=== PATIENT | female | born 1960 | race Caucasian/White ===

== ENCOUNTER 2024-04-13 18:39 | Emergency (ER) | payer BC, SELFPAY ==
[2024-04-13] VITALS (9 sets, daily range): BP systolic 137–196; BP diastolic 70–104; PULSE 73–88; RESP 14–21; TEMP 36.6; O2SAT 95–100
--- NOTE | ~2024-04-13 | CT_ITS ---
CTA brain carotid Ordering provider: Shelly Bill MD History: . stroke, L weakness . Comparison: None. Technique: CT angiogram head and neck was performed following timed intravenous injection of contrast . Thin slice axial images and reformatted coronal images were obtained. Three dimensional reformatted images of the brain were also obtained using a [employer] workstation. Radiation reduction technique ut ilized The dose-length product was 888.83 mGy-cm. 100 mL Omnipaque 350 was given IV. FINDINGS: HEAD: --ANTERIOR AND MIDDLE CEREBRAL ARTERIES AND BRANCHES: Normal caliber and contour. --INTERNAL CAROTID ARTERIES: Normal caliber and contour. --BASILAR ARTERY AND BRANCHES: Normal caliber and contour. No atheromatous disease. --POSTERIOR CEREBRAL ARTERIES: Normal caliber and contour --POSTERIOR COMMUNICATING ARTERIES: Not visualized which is probably related to congenital absence or small size. --ANEURYSM: None visualized. --BRAIN: Please refer to report of CT head performed the same day. --BONES AND SUPERFICIAL SOFT TISSUES: Please refer to report of CT head performed the same day. --PARANASAL SINUSES AND MASTOIDS: Please refer to report of CT head done the same day. NECK: --RIGHT CERVICAL CAROTID SYSTEM: Normal caliber and contour. Percent stenosis per NASCET criteria is 0%. No carotid dissection. Otherwise, no significant atheromatous disease or stenosis of the cervica l carotid system. --LEFT CERVICAL CAROTID SYSTEM: Normal caliber and contour. Percent stenosis per NASCET criteria is 0%. No carotid dissection. Otherwise, no significant atheromatous disease or stenosis of the cervical carotid system. --VERTEBRAL ARTERIES: Dominant left vertebral artery. Normal caliber and contour. --VISUALIZED AORTIC ARCH AND BRANCHING VESSELS: Normal caliber and contour. No significant atheromato us disease. --SOFT TISSUES: Large nodule in the left lobe of the thyroid. Ultrasound evaluation advised. --CERVICAL SPINE: Age appropriate degenerative changes. IMPRESSION: 1. Normal CTA head and neck. Percent stenosis per NASCET criteria is 0%. 2. Large left lobe of the thyroid nodule. Ultrasound evaluation advised. Reviewed, dictated and finalized at location A.
--- NOTE | ~2024-04-13 | XR_ITS ---
XR chest 1V portable Ordering provider: Peter Anglin MD History: 63 years Female with . left sided weakness . Comparison: None. FINDINGS: MEDIASTINUM: The cardiac silhouette is not enlarged. LUNGS: No infiltrates, effusions or pneumothorax. OTHER: No free air under the diaphragm. Degenerative spine. IMPRESSION: No acute cardiopulmonary pathology. Reviewed, dictated and finalized at location A.
--- NOTE | ~2024-04-13 | CT_ITS ---
CT brain wo con Ordering provider: Peter Anglin MD History: 63 years Female with . left sided weakness . Comparison: None. Technique: CT of the head without contrast. Radiation reduction technique utilized The dose-length product was 605.33 mGy-cm. FINDINGS: BRAIN PARENCHYMA AND CSF SPACES: No midline shift, mass effect or hemorrhage. The brain parenchyma a nd CSF spaces are otherwise normal. Tiny hypodensity seen in the right temporal complex which measure s 5 mm this may be old lacunar infarct. VISUALIZED PARANASAL SINUSES: Well aerated. MASTOIDS: Well aerated. BONES: The bones appear intact. SOFT TISSUES: Visualized nasopharynx is normal. Superficial soft tissues are normal. IMPRESSION: No acute intracranial findings. Reviewed, dictated and finalized at location A.
--- NOTE | 2024-04-13 18:40 | ECG_ITS ---
Test Date: 2024-04-13 19:02:47 Measurements Intervals [place] Rate: 95 P: 58 WI: 184 QRS: 20 QRSD: 88 T: 57 QT: 359 QTc: 453 Interpretive Statements SINUS RHYTHM BASELINE ARTIFACT- I, II, III, AVR, AVL, AVF NORMAL ECG No previous ECG available for comparison Electronically Signed On 04-13-2024 19:25:15 CDT by Aiden Harris D.O.
[2024-04-13 18:55] LABS: Basophils Percent Auto 0.4 % (0.2-1.2); Eosinophils Absolute Auto 0.3 K/mm3 (0-0.3); Eosinophils Percent Auto 2.6 % (0-4.4); Hematocrit 38.5 % (37.0-47.0); Hemoglobin 12.7 g/dL (12.0-15.0); Immature Granulocyte Absolute 0.03 K/mm3 (0.00-0.031); Immature Granulocyte Percent A 0.3 % (0-0.5); Lymphocytes Absolute Auto 4.21 K/mm3 (0.9-3.2); Lymphocytes Percent Auto 39.6 % (18.3-44.2); Mean Corpuscular Hemoglobin 33.1 pg (26-34); Mean Corpuscular Volume 100.3 fl (80-100); Mean Platelet Volume 9.6 fl (7.4-10.4); Monocytes Absolute Auto 0.9 K/mm3 (0.1-0.6); Monocytes Percent Auto 8.3 % (2.6-8.5); Neutrophils Absolute Auto 5.2 K/mm3 (1.3-6.7); Neutrophils Percent Auto 48.8 % (45.5-73.1); Platelet Count Result 376 k/mm3 (150-375); Red Blood Count 3.84 M/mm3 (4.2-5.4); Red Cell Distribution Width 13.4 % (11.5-14.5); White Blood Count 10.6 K/mm3 (4.5-10.0)
[2024-04-13 19:04] LABS: Alanine Aminotransferase 21 U/L (6-35); Albumin Level 4.7 g/dL (3.5-5.1); Alkaline Phosphatase 80 U/L (38-126); Anion Gap 12 mmol/L (4-12); Aspartate Amino Transferase 31 U/L (14-36); Bilirubin,Total 0.3 mg/dL (0.2-1.3); Blood Urea Nitrogen 23 mg/dL (7-17); Calcium 9.9 mg/dL (8.4-10.2); Carbon Dioxide 24 mmol/L (22-30); Chloride 101 mmol/L (98-107); Estimated Glomerular Filt Rate > 60; Glucose 110 mg/dL (65-110); Potassium 3.3 mmol/L (3.4-5.0); Sodium 137 mmol/L (137-145)
--- NOTE | 2024-04-13 19:04 | ED.NEUROSD ---
HPI - Neuro Symptoms/Deficit General Chief Complaint: Suspected CVA Stated Complaint: left sided weakness Time Seen by Provider: 04/13/24 18:43 History of Present Illness HPI Narrative: 63-year-old female presenting with left-sided weakness. States that approximately 1 hour ago she noticed that she was unable to move her left arm. States that her left arm and leg are numb and she can not walk on the left leg. States that she had a headache a few hours ago. No vision changes or speech changes. No further complaints. Related Data Allergies Allergy/AdvReac Type Severity Reaction Status Date / Time No Known Allergies Allergy Verified 04/13/24 18:50 Review of Systems Review of Systems: ROS unobtainable: Yes unobtainable due to medical condition Exam Narrative: GENERAL: Nontoxic, no acute distress HEAD: Normocephalic, atraumatic. EYES: PERRLA and EOMI. ENT: Mucous membranes moist. NECK: Supple. CHEST: No respiratory distress. HEART: Regular rate and rhythm ABDOMEN: Soft, nontender, nondistended EXTREMITIES: Normal range of motion. SKIN: Warm, dry, no rash. NEURO: Alert and oriented x3. 4/5 strength in LLE; 2/5 strength in LUE; weak nursing agency manager intact; 5/5 strength R extremities, +decreased sensation in arm and leg PSYCH: Normal mood and affect. Course Vital Signs Vital signs: Vital Signs Pulse Rate 88 04/13/24 18:51 Respiratory Rate 15 04/13/24 18:51 Blood Pressure 196/103 H 04/13/24 18:51 Pulse Oximetry 95 04/13/24 18:51 Oxygen Delivery Room Air 04/13/24 18:51 Temperature 97.8 F 04/13/24 19:55 Pulse Rate 74 04/13/24 19:55 Respiratory Rate 14 04/13/24 19:55 Blood Pressure 166/94 H 04/13/24 19:55 Pulse Oximetry 99 04/13/24 19:56 Oxygen Delivery Room Air 04/13/24 18:51 MDM - Neuro Symptoms/Deficit MDM Narrative Medical decision making narrative: 63-year-old female presenting as a stroke alert. NIH of 5. Blood pressure initially 200 systolic, came down on its own to 160s/60s. CT brain without acute abnormalities. Concerned that this represents acute CVA. Discussed with the patient TNK, she is agreeable. Spoke with Dr. Miller at [facility] who agrees with TNK and transfer ER to ER. I spoke with Dr. Pereira and ER to ER was accepted the patient for transfer. TNK has been administered. Patient being flown to [facility] ER. Differential Diagnosis Differential diagnosis: Likely cerebrovascular accident and transient cerebral ischemia Medical Records Attestation: I reviewed the patient's medical records. Lab Data Attestation: I reviewed the patient's lab results. 04/13/24 18:48 04/13/24 18:48 Labs: Lab Results 04/13/24 Range/Units 18:48 WBC 10.6 H (4.5-10.0) K/mm3 RBC 3.84 L (4.2-5.4) M/mm3 Hgb 12.7 (12.0-15.0) g/dL Hct 38.5 (37.0-47.0) % MCV 100.3 H (80-100) fl MCH 33.1 (26-34) pg MCHC 33.0 (32-36) g/dl RDW 13.4 (11.5-14.5) % Plt Count 376 H (150-375) k/mm3 MPV 9.6 (7.4-10.4) fl Immature Gran % (Auto) 0.3 (0-0.5) % Neut % (Auto) 48.8 (45.5-73.1) % Lymph % (Auto) 39.6 (18.3-44.2) % [place] % (Auto) 8.3 (2.6-8.5) % Eos % (Auto) 2.6 (0-4.4) % Baso % (Auto) 0.4 (0.2-1.2) % Lymph # (Auto) 4.21 H (0.9-3.2) K/mm3 [place] # (Auto) 0.9 H (0.1-0.6) K/mm3 Eos # (Auto) 0.3 (0-0.3) K/mm3 Baso # (Auto) 0.0 (0.0-0.1) K/mm3 Abs Immat Gran (auto) 0.03 (0.00-0.031) K/mm3 Absolute Neuts (auto) 5.2 (1.3-6.7) K/mm3 Absolute Nucleated RBC 0.000 (0.0-0.012) K/mm3 Nucleated RBC % 0.0 (0.0-0.2) % PT 13.1 (11.1-14.7) Seconds INR 0.9 APTT 29.1 (22.3-36.8) Seconds Sodium 137 (137-145) mmol/L Potassium 3.3 L (3.4-5.0) mmol/L Chloride 101 (98-107) mmol/L Carbon Dioxide 24 (22-30) mmol/L Anion Gap 12 (4-12) mmol/L BUN 23 H (7-17) mg/dL Creatinine 0.60 L (0.7-1.0) mg/dL Estim Creat Clear Calc Not Reportable Estimated GFR > 60 (59 - ) Glucose 110 (65-110) mg/dL Calci
[2024-04-13 19:05] LABS: INR 0.9; Prothrombin Time 13.1 Seconds (11.1-14.7)
[2024-04-13 19:06] LABS: Partial Thromboplastin Time 29.1 Seconds (22.3-36.8)
[2024-04-13 19:15] LABS: Troponin I < 0.012 ng/mL (0.000-0.034)
[2024-04-13] MEDS: TENECTEPLASE 50 MG/10 ML VIAL 15.2 MG IV PUSH (19:27)
--- NOTE | 2024-04-13 20:03 | PC.NURSE ---
Called bc at 1940, ETA will be 1999. Cancel transport at 1953.
[2024-04-17 15:31] LABS: Glucose Point of Care 111 mg/dl (65-105)
== END 2024-04-13 20:12 | disposition short-term general hospital (02) ==
LOC: ANHED 19:31
PROVIDERS: Emergency Medicine; Emergency Provider Emergency Medicine
DX: I63.9 Cerebral infarction, unspecified (principal); R29.705 NIHSS score 5; E04.1 Nontoxic single thyroid nodule
CPT/HCPCS: 36415; 70450; 70496; 70498; 71045; 80053; 82948; 84484; 85025; 85610; 85730; 93005; 96374; 99285; J3101; Q9967